=== PATIENT | male | born 1965 | race Caucasian/White ===

== ENCOUNTER → 2023-04-23 | Outpatient (CLI) | payer OTHER ==
--- NOTE | 2023-04-23 14:21 | US ---
EXAMINATION TYPE: US arterial LE single level DATE OF EXAM: 04/23/2023 2:00 PM CLINICAL INDICATION: Male, 57 years old with history of I73.9 PERIPHERAL VASCULAR DISEASE, UNSPECIFIE D; History of: Smoker: y Hypertension: y Diabetic: y Hyperlipidemia: y TIA/CVA: n Previous Vascular Surgery: n CAD: n LA: n Vascular Ulcers: n Claudication: n Gangrene: n Doppler Waveforms: Right: Multiphasic Left: Multiphasic Right Brachial Pressure: 85 Left Brachial Pressure: 84 Ankle-Brachial Indices: Right: 1.2 Left: 1.1 Toe Brachial Indices: Right: 1.0 Left: 0.9 IMPRESSION: Normal KASEY indices.
== END | disposition home or self-care (01) ==
LOC: RADUSWWP 13:33
PROVIDERS: ATTEND Podiatrist Foot & Ankle Surgery
DX: I73.9 Peripheral vascular disease, unspecified (principal)
CPT/HCPCS: 93922